=== PATIENT | female | born 1950 | race Caucasian/White ===

== ENCOUNTER 2018-12-08 12:46 | Emergency (ER) | payer MEDICARE ==
[~2018-12-08] VITALS: Ht 165.1 cm; Wt 116.6 kg
[~2018-12-08 12:46] MED LIST: ALBU90OI INH; ASPI81CH PO; ASPI81EC PO; ATOR10; AZIT250 PO; BENA10 PO; BENZ100A PO; CALPHO600; CHOL10002; ERGO400 PO; FURO100EL PO; FURO20 PO; HORSE CHESTNUT; HYDACE5 PO; HYDCHL12.5; HYDR1TAB94 PO; INSLI100I SC; INSR10I SC; INSULANI SC; INSULANPEN SC; LEVSOD100 PO; LEVSOD75; LOSA25 PO; MAGCIT300 PO; MECL12.5 PO; METF500 PO; POTA10T PO; POTCHL10ER PO; PRAV20 PO; RXONDA4ODT MM; TRIHYD5075 PO; WARF5 PO
== END 2018-12-08 14:43 | disposition home or self-care (01) ==
LOC: ER 12:46
DX: I82.811 Embolism and thrombosis of superficial veins of right lower extremity (principal); E11.9 Type 2 diabetes mellitus without complications; I10 Essential (primary) hypertension; E78.5 Hyperlipidemia, unspecified; Z87.891 Personal history of nicotine dependence; Z86.718 Personal history of other venous thrombosis and embolism; Z79.899 Other long term (current) drug therapy; Z79.01 Long term (current) use of anticoagulants; Z79.4 Long term (current) use of insulin; Z88.8 Allergy status to other drugs, medicaments and biological substances
CPT/HCPCS: 93971; 99283-25

== ENCOUNTER 2020-07-13 17:49 | Emergency (ER) | payer MEDICARE ==
[~2020-07-13] VITALS: Ht 165.1 cm; Wt 104.3 kg
== END 2020-07-13 21:24 | disposition home or self-care (01) ==
LOC: ER 17:49
DX: L08.9 Local infection of the skin and subcutaneous tissue, unspecified (principal); I10 Essential (primary) hypertension; E03.9 Hypothyroidism, unspecified; E78.5 Hyperlipidemia, unspecified; Z79.4 Long term (current) use of insulin; Z88.8 Allergy status to other drugs, medicaments and biological substances; Z79.01 Long term (current) use of anticoagulants; Z79.899 Other long term (current) drug therapy; Z87.891 Personal history of nicotine dependence
CPT/HCPCS: 99282

== ENCOUNTER 2022-12-27 09:54 | Day surgery (SDC) | payer MEDICARE ==
[~2022-12-27] VITALS: Ht 165.1 cm; Wt 100.5 kg
[~2022-12-27 09:54] MED LIST changes: +CEPH500 PO; +DOXY100 PO
--- NOTE | 2022-12-27 10:42 | NUR ---
12/27/22 1042 Celia Patrick 2 IV ATTEMPTS BY [facility], 1ST IN L HAND INFILTRATED, 2ND IN L AC WAS SUCCESSFUL
[2022-12-27] MEDS ORDERED: TRULICITY1.5 MG/0.1 (10:48)
[2022-12-27] MEDS ORDERED: METF500 PO (10:48)
== END 2022-12-27 13:30 | disposition home or self-care (01) ==
LOC: ORSCSDS 09:54
PROVIDERS: Podiatrist Foot & Ankle Surgery
PROC: 0JJW3ZZ Inspection of Lower Extremity Subcutaneous Tissue and Fascia, Percutaneous Approach (ICD-10-PCS; principal; 2022-12-27 11:40)
DX: L02.611 Cutaneous abscess of right foot (principal); I10 Essential (primary) hypertension; E11.9 Type 2 diabetes mellitus without complications; E03.9 Hypothyroidism, unspecified; E66.9 Obesity, unspecified; Z68.36 Body mass index [BMI] 36.0-36.9, adult; Z79.899 Other long term (current) drug therapy
CPT/HCPCS: 82947; 87070; 87075; 87077; 87186; 87205; J0690; J1100; J2001; J2250; J2370; J2405; J2704; J2795; J3010; J7120

== ENCOUNTER 2023-07-29 13:17 | Emergency (ER) | payer MEDICARE ==
[~2023-07-29] VITALS: Ht 165.1 cm; Wt 95.2 kg
[~2023-07-29 13:17] MED LIST changes: +TRULICITY1.5 MG/0.1
[2023-07-29 13:34] VITALS: BP 128/95
[2023-07-29 14:36] LABS: BASOPHILS ABSOLUTE AUTO 0.05 K/mm3 (0.00-0.23); BASOPHILS PERCENT AUTO 1 % (0-2); EOSINOPHILS ABSOLUTE AUTO 0.21 K/mm3 (0.00-0.68); EOSINOPHILS PERCENT AUTO 3 % (0-6); Hematocrit 41.2 % (33.0-51.0); Hemoglobin 13.8 g/dL (11.5-16.0); IMMATURE GRAN ABSOLUTE AUTO 0.02 K/mm3 (0.00-0.10); IMMATURE GRAN PERCENT AUTO 0 % (0-1); LYMPHOCYTES ABSOLUTE AUTO 2.44 K/mm3 (0.84-5.20); LYMPHOCYTES PERCENT AUTO 30 % (21-46); MONOCYTES ABSOLUTE AUTO 0.85 K/mm3 (0.16-1.47); MONOCYTES PERCENT AUTO 11 % (4-13); Mean Corpuscular HGB 29.4 pg (26.0-34.0); Mean Corpuscular HGB Conc 33.5 g/dL (31.5-36.5); Mean Corpuscular Volume 88 fL (80-100); NEUTROPHILS ABSOLUTE AUTO 4.46 K/mm3 (1.96-9.15); NEUTROPHILS PERCENT AUTO 56 % (41-73); Platelet Count 277 K/mm3 (150-400); RDW Coefficient Variation 13.6 % (11.7-14.2); RDW Standard Deviation 43.9 fL (35.1-46.3); White Blood Cell Count 8.03 K/mm3 (4.00-11.30)
[2023-07-29 14:56] LABS: Albumin, Blood 3.6 g/dL (3.4-5.0); Albumin/Globulin Ratio 0.8 (0.8-1.8); Bilirubin, Total 0.4 mg/dL (0.1-1.0); Bun/Creatinine Ratio 26.2 (12.0-20.0); Creatinine, Blood 1.03 mg/dL (0.40-1.00); Globulin, Blood 4.7 g/dL (2.2-4.0); Potassium, Blood 3.8 mmol/L (3.5-5.5); Total Protein, Blood 8.3 g/dL (6.4-8.2)
[2023-07-29] MEDS ORDERED: EUTHYROX25 MC1 PO (15:51)
[2023-07-29] MEDS ORDERED: TERB250 PO (15:52)
== END 2023-07-29 15:31 | disposition home or self-care (01) ==
LOC: ER 13:17
PROVIDERS: Physician Assistant
DX: U07.1 COVID-19 (principal); E11.51 Type 2 diabetes mellitus with diabetic peripheral angiopathy without gangrene; I10 Essential (primary) hypertension; E03.9 Hypothyroidism, unspecified; E78.2 Mixed hyperlipidemia; Z79.84 Long term (current) use of oral hypoglycemic drugs; Z88.8 Allergy status to other drugs, medicaments and biological substances; Z79.899 Other long term (current) drug therapy; Z87.891 Personal history of nicotine dependence
CPT/HCPCS: 80053; 85025; 93005; 93010; 99284-25; A9270

== ENCOUNTER → 2023-11-21 | Outpatient (CLI) | payer MEDICARE ==
[~2023-11-21] MED LIST changes: +EUTHYROX25 MC1 PO; +TERB250 PO
== END ==
LOC: LAB SHORT 20:44 → LAB 20:44
DX: L08.9 Local infection of the skin and subcutaneous tissue, unspecified (principal)
CPT/HCPCS: 87070; 87075; 87077; 87186; 87205

== ENCOUNTER 2024-03-20 16:45 | Emergency (ER) | payer MEDICARE ==
[~2024-03-20] VITALS: Ht 165.1 cm; Wt 106.1 kg
[2024-03-20 16:50] VITALS: BP 121/81
[2024-03-20] MEDS ORDERED: Cyclobenzaprine5 MG PO (17:55)
[2024-03-20] MEDS ORDERED: Cyclobenzaprine HCl 10 MG Tab PO ONE (17:55)
== END 2024-03-20 18:07 | disposition home or self-care (01) ==
LOC: ER 16:45
DX: S16.1XXA Strain of muscle, fascia and tendon at neck level, initial encounter (principal); X58.XXXA Exposure to other specified factors, initial encounter; Z79.890 Hormone replacement therapy; Z79.85 Long-term (current) use of injectable non-insulin antidiabetic drugs; Z79.84 Long term (current) use of oral hypoglycemic drugs; Z79.899 Other long term (current) drug therapy
CPT/HCPCS: 72040; 73000; A9270

== ENCOUNTER → 2025-03-08 | Outpatient (CLI) | payer OTHER ==
[~2025-03-08] MED LIST changes: +Cyclobenzaprine5 MG PO
== END | disposition home or self-care (01) ==
LOC: LAB SHORT 12:16 → LAB 12:16
DX: L02.93 Carbuncle, unspecified (principal)
CPT/HCPCS: 87070; 87205